=== PATIENT | female | born 1945 | race Asian ===

== ENCOUNTER 2019-12-15 20:48 | Emergency (ER) | payer OTHER ==
[~2019-12-15] VITALS: Ht 152.4 cm; Wt 52.2 kg
[2019-12-15] MEDS ORDERED: TETANUS-DIPTH-ACEL PERTUSSIS 0.5ML SYR Tdap IM ONE (21:15)
[2019-12-15 23:01] VITALS: BP 132/74
== END 2019-12-15 23:55 | disposition home or self-care (01) ==
LOC: EDBD 20:48 → ER 20:54
DX: S93.402A Sprain of unspecified ligament of left ankle, initial encounter (principal); S83.91XA Sprain of unspecified site of right knee, initial encounter; S80.11XA Contusion of right lower leg, initial encounter; V43.52XA Car driver injured in collision with other type car in traffic accident, initial encounter; Y93.89 Activity, other specified; Y92.488 Other paved roadways as the place of occurrence of the external cause; Y99.8 Other external cause status
CPT/HCPCS: 73560; 73590; 73600; 90471; 90715